=== PATIENT | male | born 1995 | race Hispanic/Latino ===

== ENCOUNTER 2018-12-16 20:03 | Emergency (ER) | payer SELFPAY ==
[~2018-12-16 20:03] MED LIST: ISOVUE-370 76%-LOCM 1 ML ONE
[2018-12-16 20:29] LABS: #Eosinphils 0.6 thou/uL (0.0-0.7); #Lymphocytes 2.4 thou/uL (1.20-3.40); #Monocytes 0.7 thou/uL (0.11-0.59); #Neutrophils 8.1 thou/uL (1.40-6.50); %Basophils 0.3 % (0.0-1.0); %Eosinophils 4.8 % (0.0-10.0); %Lymphocytes 20.4 % (21.0-51.0); %Monocytes 6.2 % (0.0-10.0); %Neutrophils 68.3 % (42.0-75.0); Hemoglobin 14.9 g/dL (14.0-18.0); Mean Corpuscular HGB CONC 34.5 g/dL (32.0-36.0); Mean Corpuscular Hemoglobin 30.4 pg (27.0-31.0); Mean Corpuscular Volume 88.1 fL (78.0-98.0); Platelet Count 317 thou/uL (130-400); RBC Distribution Width 11.8 % (11.5-14.5); Red Blood Cell (RBC) Count 4.91 mill/uL (4.70-6.10); White Blood Cell (WBC) Count 11.9 thou/uL (4.8-10.8)
[2018-12-16 20:46] LABS: PTT 26.3 SEC (22.9-36.1); Prothrombin Time 12.8 SEC (12.0-14.7)
[2018-12-16 20:50] LABS: ALT (SGPT) 96 U/L (8-55); AST (SGOT) 50 U/L (5-34); Albumin 4.5 g/dL (3.5-5.0); Alkaline Phosphatase 58 U/L (40-150); Anion Gap 14 mmol/L (10-20); BUN (Urea Nitrogen) 18 mg/dL (8.9-20.6); Bilirubin, Total 1.7 mg/dL (0.2-1.2); Calc. Creatinine Clearance 0 mL/min (70-130); Calcium 9.4 mg/dL (7.8-10.44); Carbon Dioxide 26 mmol/L (22-29); Chloride 103 mmol/L (98-107); Estimated GFR-MDRD 80; Glucose 103 mg/dL (70-105); Lipase 20 U/L (8-78); Potassium 3.3 mmol/L (3.5-5.1); Protein, Total 7.5 g/dL (6.0-8.3); Sodium 140 mmol/L (136-145)
--- NOTE | 2018-12-16 21:14 | RAD ---
PORTABLE SUPINE CHEST: History: Trauma. FINDINGS: Heart size and mediastinum are within normal limits. The lungs are clear of infiltrates. No pneumotho rax is visualized on the supine film. No rib fractures. IMPRESSION: Unremarkable supine chest. POS: [facility]
--- NOTE | 2018-12-16 21:15 | RAD ---
AP PELVIS: History: Trauma with pelvic pain. FINDINGS: The pelvic ring is intact. SI joints are symmetric. No diastasis of the symphysis. IMPRESSION: Negative AP pelvis. POS: [facility]
--- NOTE | 2018-12-16 21:34 | CT ---
FCT chest, abdomen, and pelvis with IV contrast: Multiple axial tomograms obtained through the chest, abdomen, and pelvis with IV enhancement followin g a trauma protocol. INDICATIONS:Trauma. CT CHEST: Lung hunter are clear. No evidence of pneumothorax, effusion, contusion, or infiltrate. Mediastinum is unremarkable. No evidence of hematoma. Thoracic aorta is unremarkable. No adenopathy. Heart is unremarkable. Bony thorax appears intact. No acute fracture identified. Soft tissues of the thorax appear unremarkable. IMPRESSION: 1. No acute chest injury CT abdomen and pelvis: The liver and spleen appear unremarkable with no evidence of injury. Pancreas and adrenal glands appear unremarkable. Kidneys, ureters, and urinary bladder appear unremarkable. Small and large bowel appear unremarkable with no evidence of injury. Mesentery unremarkable with no evidence of injury or hematoma. No evidence of free fluid or blood seen within the abdomen or pelvis. No evidence for retroperitoneal hematoma. Pelvic structures unremarkable with no evidence of hematoma. Abdominal aorta appears unremarkable. Bony pelvis appears intact. Lumbar spine appears intact. Subcutaneous tissues appear unremarkable. IMPRESSION: 1.No acute intra-abdominal injury CT thoracic and lumbar spine: Sagittal and coronal images of thoracic and lumbar spine obtained. Thoracic vertebra maintain normal height and alignment. No evidence of thoracic spine fracture. Lumbar vertebra maintain normal height and alignment. No evidence of lumbar spine fracture. IMPRESSION: 1.No evidence of thoracic or lumbar spine fracture. Findings relayed to Dr. Welch
== END 2018-12-16 22:58 | disposition home or self-care (01) ==
LOC: ERS 20:03
DX: S61.411A Laceration without foreign body of right hand, initial encounter (principal); S00.83XA Contusion of other part of head, initial encounter; S70.311A Abrasion, right thigh, initial encounter; R10.9 Unspecified abdominal pain; F17.210 Nicotine dependence, cigarettes, uncomplicated; V89.2XXA Person injured in unspecified motor-vehicle accident, traffic, initial encounter
CPT/HCPCS: 36415; 71045; 71260; 72170; 74177; 80053; 83690; 85025; 85610; 85730; 86850; 86900; 86901; G0390; Q9966